=== PATIENT | male | born 1960 | race Caucasian/White ===

== ENCOUNTER 2023-02-25 11:10 | Emergency (ER) | payer MEDICAID, SELFPAY ==
[2023-02-25 11:10] VITALS: BP 186/105; PULSE 89; RESP 19; TEMP 36.7; O2SAT 99; BMI 25.9
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
[2023-02-25 11:19] VITALS: O2SAT 99
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
--- NOTE | 2023-02-25 11:19 | CT_ITS ---
STUDY: CT CHEST, ABDOMEN T PELVIS WITH CONTRAST REASON FOR EXAM: Male, 62 years old. Significant right upper quadrant pain -- TRAUMA ONLY: IV Contrast. Don''t wait for creatinine RADIATION DOSAGE (If Supplied By Facility): CTDIvol = ( 19.81 ) mGy, DLP = ( 1877.98 ) mGycm TECHNIQUE: Transaxial imaging was performed following intravenous administration of 100mL Isovue 370. Individualized dose optimization techniques were used for this CT. COMPARISON: No relevant prior comparison study available FINDINGS: CHEST Emphysematous and bullous changes in the lung apices. Mild hypoventilatory and compressive atelectatic changes in the lower lungs. No evidence of pulmonary contusion. There is no demonstrated pleural abnormality. Normal heart and pericardium. Few small mediastinal and right hilar nodes could be reactive. Calcified nodes in the right hilar region. Pulmonary arteries are not well enhanced. No evidence of thoracic aortic aneurysm. No demonstrated acute fracture. Compression fracture of L1 with vertebroplasty. ABDOMEN Hepatomegaly. Small cyst near the dome of the liver. Normal gallbladder and extrahepatic biliary system. Normal spleen. Normal pancreas. Normal bilateral adrenal glands. Bilateral renal cysts, the largest measures about 1.5 cm in the right kidney appears to be simple and no further follow-up exam is needed. There is however 1.2 cm hyperdense nodule in the left kidney could represent hyperdense cyst. Nonobstructing stones in both kidneys without evidence of hydronephrosis. Normal visualized stomach. Normal in caliber small bowel loops. Fecal retention. No evidence of acute diverticulitis. There are surgical clips in the region of the appendix consistent with a prior appendectomy. No evidence of abdominal aortic aneurysm. Normal inferior vena cava. Normal retroperitoneum. Normal abdominal wall. Fusion of the lower lumbar spine with pedicle screws. Degenerative changes. No demonstrated acute fracture. PELVIS Normal urinary bladder. Slightly prominent prostate. CT/CT Chest, Abd, Pel w/Contrast IMPRESSION: 1. No evidence of pulmonary contusion, pneumothorax or pleural effusions. 2. No evidence of solid organ injury or acute fracture. 3. Small hyperdense nodule in the left kidney could represent hyperdense cyst. Follow-up nonemergent renal ultrasound might be of value. 4. Punctate nonobstructing stones in the left kidney without evidence of hydronephrosis. Electronically Signed: Jamil Fermin MD at 12:40 EDT ,
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
[2023-02-25] MEDS: Diphth,Pertuss(Acell),Tet Vac 0.5 ML Vial IM (11:29)
--- NOTE | 2023-02-25 11:30 | NURSING ---
NO OLD EKG
[2023-02-25 11:31] LABS: Absolute Lymphocyte Count 2.53 X10^3/uL (0.83-4.51); Absolute Neutrophil Count 2.9 X10^3/uL (2.0-7.7); Basophil# 0.02 X10^3/uL; Basophil% 0.3 % (0-1); Eosinophil# 0.03 X10^3/uL; Eosinophils% 0.5 % (0-5); Hematocrit 43.9 % (40-54); Hemoglobin 14.2 g/dL (13.0-16.5); Lymphocyte # 2.53 X10^3/ul (0.83-4.51); Lymphocyte % 40.8 % (19-41); Mean Corp Hgb Conc 32.3 g/dL (32-36); Mean Corpuscular Volume 89.6 fL (80-94); Mean Platelet Vol. 9.4 fl (6.2-12.0); Monocyte# 0.63 X10^3/uL; Monocyte% 10.2 % (0-10); NRBC Flagged by Analyzer 0 % (0-5); Neutrophil # 2.94 X10^3/uL (2.7-7.7); Neutrophil % 47.4 % (47-70); Platelet Count 201 K/mm3 (150-450); RBC Distribution Width CV 12.8 % (11.6-14.6); RBC Distribution Width SD 41.8 fl (35.1-43.9); White Blood Count 6.2 K/mm3 (4.4-11.0)
[2023-02-25 11:47] LABS: Anion Gap 5 (5-15); BUN 16 mg/dL (7-18); BUN/Creat Ratio 15.2 RATIO (10-20); Calcium,Total 9.4 mg/dL (8.5-10.1); Chloride 109 mmol/L (98-107); Creatinine, Serum 1.05 mg/dL (0.70-1.30); EST Glomerular Filtration Rate 76 mL/min (>60); Est Glom Filt Rate - Afr Amer 93 mL/min (>60); Estimated Creatinine Clearance 77.25 ml/min; Glucose 145 mg/dL (74-106); Potassium 3.9 mmol/L (3.5-5.1); Sodium Level 139 mmol/L (136-145)
[2023-02-25 12:07] VITALS: BP 199/112; PULSE 89; RESP 14; O2SAT 99
[2023-02-25 12:09] LABS: Alcohol, Blood (Medical)-Serum < 3.0 mg/dL
[2023-02-25] MEDS: Ondansetron 4 MG/2 ML Vial IV (13:18)
[2023-02-25] MEDS: Morphine 4 MG/ML Syringe IV (13:18)
[2023-02-25 13:24] VITALS: BP 182/98; PULSE 81; RESP 14; O2SAT 98
[2023-02-25] MEDS: HYDROmorphone 0.5 MG/0.5 ML SYRINGE IV (14:21)
[2023-02-25] MEDS: Lidocaine 1% (20 ml mdv) 20 ML Vial 10 ML INFILT (14:37)
== END 2023-02-25 14:46 | disposition home or self-care (01) ==
PROVIDERS: Emergency Provider Emergency Medicine; Visit Provider Emergency Medicine
DX: S01.01XA Laceration without foreign body of scalp, initial encounter (principal); R10.11 Right upper quadrant pain; S16.1XXA Strain of muscle, fascia and tendon at neck level, initial encounter; S30.1XXA Contusion of abdominal wall, initial encounter; R07.81 Pleurodynia; V65 Occupant of heavy transport vehicle injured in collision with railway train or railway vehicle; Y92.85 Railroad track as the place of occurrence of the external cause; F17.210 Nicotine dependence, cigarettes, uncomplicated
CPT/HCPCS: 12002; 70450; 71260; 72125; 74177; 80048; 82077; 85025; 90715; 93005; 99285; Q9967; A4216; J2405